=== PATIENT | female | born 1980 | race Two or more races ===

== ENCOUNTER 2021-06-03 09:19 | Outpatient (CLI) | payer OTHER | END 2021-06-03 09:38 | disposition home or self-care (01) | LOC: SONOGRAMA 09:19 | DX: R10.2 Pelvic and perineal pain (principal); E66.3 Overweight; Z00.01 Encounter for general adult medical examination with abnormal findings; N92.1 Excessive and frequent menstruation with irregular cycle; Z11.3 Encounter for screening for infections with a predominantly sexual mode of transmission; Z11.8 Encounter for screening for other infectious and parasitic diseases ==